=== PATIENT | female | born 1975 | race American Indian/Alaskan Native ===

== ENCOUNTER 2017-12-27 10:34 | Emergency (ER) | payer MEDICAID, SELFPAY ==
[2017-12-27 10:43] VITALS: TEMP 98.4
[2017-12-27 10:46] VITALS: O2SAT 98
--- NOTE | 2017-12-27 11:13 | ED PDOC ---
HPI: Psych/Substance Abuse Time Seen by Provider: 12/27/17 11:00 Chief Complaint (Nursing): Psychiatric Evaluation Chief Complaint (Provider): psych eval History Per: Patient (42 y/o female h/o Depression ran out of celexa 1 month ago. Notes she has had traumatic events in her life 1995 that frequently replay in her mind and cause her anxiety/stress. Denies any SI/HI/suicidal plan.) Past Medical History Reviewed: Historical Data, Nursing Documentation, Vital Signs Vital Signs: Last Vital Signs Temp 98.4 F 12/27/17 10:42 Pulse 81 12/27/17 10:42 Resp 21 12/27/17 10:42 BP 150/99 H 12/27/17 10:42 Pulse Ox 98 12/27/17 10:45 - Medical History PMH: Depression - Family History Family History: States: No Known Family Hx - Allergies Allergies/Adverse Reactions: Allergies Allergy/AdvReac Type Severity Reaction Status Date / Time No Known Allergies Allergy Verified 12/27/17 10:45 Review of Systems ROS Statement: Except As Marked, All Systems Reviewed And Found Negative Physical Exam - Reviewed Nursing Documentation Reviewed: Yes Vital Signs Reviewed: Yes - Physical Exam Appears: Positive for: Well, Non-toxic, No Acute Distress Head Exam: Positive for: ATRAUMATIC, NORMAL INSPECTION, NORMOCEPHALIC Skin: Positive for: Normal Color, Warm, DRY Eye Exam: Positive for: EOMI, Normal appearance, PERRL ENT: Positive for: Normal ENT Inspection Neck: Positive for: Normal, Painless ROM Cardiovascular/Chest: Positive for: Regular Rate, Rhythm Respiratory: Positive for: CNT, Normal Breath Sounds Gastrointestinal/Abdominal: Positive for: Normal Exam, Soft Back: Positive for: Normal Inspection Extremity: Positive for: Normal ROM Neurologic/Psych: Positive for: Alert, Oriented - ECG O2 Sat by Pulse Oximetry: 98 - Progress ED Course And Treament: seen by crisis diagnosis Depression. Cleared for d/c home by Dr. Ervin. Patient to f/u outpatient 12/30/2017 Disposition - Clinical Impression Clinical Impression: Depression - Patient ED Disposition Is Patient to be Admitted: No - Disposition Disposition: Routine/Home Disposition Time: 11:39 Condition: FAIR Instructions: Depression, Adult (DC) Forms: [facility] ED School/Work Excuse
[2017-12-27 12:00] LABS: SQUAMOUS EPITHIAL 4 /hpf (0-5); URINE BACTERIA RARE (<OCC); URINE BILIRUBIN NEGATIVE (NEGATIVE); URINE BLOOD NEGATIVE (NEGATIVE); URINE CLARITY SLIGHTY-CLOUDY (Clear); URINE COLOR YELLOW (YELLOW); URINE GLUCOSE (UA) NEG (Normal); URINE LEUKOCYTE ESTERASE NEG Leu/uL (Negative); URINE PROTEIN NEGATIVE (NEGATIVE)
[2017-12-27 12:03] LABS: BARBITURATES, UR NEGATIVE (NEGATIVE); BENZODIAZEPINES, UR NEGATIVE (NEGATIVE); OPIATES, UR NEGATIVE (NEGATIVE); PHENCYCLIDINE, UR NEGATIVE (NEGATIVE)
[2017-12-27 12:16] VITALS: BP 150/90; PULSE 78; RESP 16
== END 2017-12-27 12:16 | disposition home or self-care (01) ==
LOC: H.ER 10:34
DX: F32.9 Major depressive disorder, single episode, unspecified (principal); Z86.59 Personal history of other mental and behavioral disorders; Z00.8 Encounter for other general examination
CPT/HCPCS: 81003; 81025; 99282; G0480